=== PATIENT | female | born 1995 | race Caucasian/White ===

== ENCOUNTER 2018-03-24 22:03 | Emergency (ER) | payer BC, MEDICAID ==
[~2018-03-24] VITALS: Ht 170.2 cm; Wt 57.0 kg
[~2018-03-24 22:03] MED LIST: DOCU100C40 PO; HYDR-569 PO
[2018-03-25 00:28] LABS: URINE HCG NEGATIVE (NEG)
[2018-03-25 00:29] LABS: CLARITY,URINE SLIGHTLY CLOUDY (Clear); COLOR,URINE YELLOW (Yellow); GLUCOSE, URINE NEGATIVE (Neg); KETONES,URINE NEGATIVE (Neg); LEUKOCYTE ESTERASE ,URINE NEGATIVE (Neg); NITRITES, URINE NEGATIVE (Neg); OCCULT BLOOD,URINE NEGATIVE (Neg); PH,URINE 8.5 (4.8-8.0); PROTEIN,URINE NEGATIVE (Neg); UROBILINOGEN,URINE 0.2 E.U/dL (0.2-1.0)
[2018-03-25 00:33] LABS: UA COLLECTION TYPE CLN CATCH MIDSTREAM
[2018-03-25] MEDS ORDERED: ketorolac trometh. 30mg/ml inj. IM ONE (00:40)
[2018-03-25 00:43] LABS: AMORPHOUS PHOSPHATES 4+; RBC,URINE 0-2 /HPF (0-2); SQUAMOUS EPITHELIAL CELL,UR MANY /LPF (FEW); WBC,URINE 0-4 /HPF (0-4)
[2018-03-25 00:44] LABS: BACTERIA,URINE FEW /HPF (Neg)
[2018-03-25 00:58] VITALS: BP 121/67
== END 2018-03-25 00:59 | disposition home or self-care (01) ==
LOC: ER 22:03
DX: R10.30 Lower abdominal pain, unspecified (principal); K21.9 Gastro-esophageal reflux disease without esophagitis; Z88.8 Allergy status to other drugs, medicaments and biological substances; Z91.040 Latex allergy status; Z79.899 Other long term (current) drug therapy
CPT/HCPCS: 81001; 81025; 96372; 99284; J1885

== ENCOUNTER 2018-06-14 10:34 | Emergency (ER) | payer BC, MEDICAID ==
[~2018-06-14] VITALS: Ht 170.2 cm; Wt 63.0 kg
[2018-06-14] MEDS ORDERED: ondansetron/PF 4mg/2ml inj IV ONE (12:40)
[2018-06-14] MEDS ORDERED: normal saline 1000ML IV soln IVB ONE (12:40)
[2018-06-14 13:14] LABS: CLARITY,URINE SLIGHTLY CLOUDY (Clear); COLOR,URINE YELLOW (Yellow); GLUCOSE, URINE NEGATIVE (Neg); KETONES,URINE 15 mg/dl (Neg); LEUKOCYTE ESTERASE ,URINE NEGATIVE (Neg); NITRITES, URINE NEGATIVE (Neg); OCCULT BLOOD,URINE NEGATIVE (Neg); PH,URINE 5.5 (4.8-8.0); PROTEIN,URINE TRACE mg/dl (Neg); URINE HCG NEGATIVE (NEG); UROBILINOGEN,URINE 0.2 E.U/dL (0.2-1.0)
[2018-06-14 13:15] LABS: UA COLLECTION TYPE CLN CATCH MIDSTREAM
[2018-06-14 13:27] LABS: AMORPHOUS URATES 4+; BACTERIA,URINE NONE SEEN /HPF (Neg); RBC,URINE NONE SEEN /HPF (0-2); SQUAMOUS EPITHELIAL CELL,UR MODERATE /LPF (FEW); WBC,URINE 0-4 /HPF (0-4)
[2018-06-14] MEDS ORDERED: proCHLORperazine 10 MG/2 ml inj IV ONE (13:35)
[2018-06-14] MEDS ORDERED: mag hydrox/Alum hydrox/simeth 30ml oral suspension PO ONE (13:35)
[2018-06-14] MEDS ORDERED: famotidine 20mg tablet PO ONE (13:35)
[2018-06-14] MEDS ORDERED: pantoprazole 40 MG vial IV ONE (13:35)
[2018-06-14 14:50] LABS: C DIFF ANTIGEN NEGATIVE (NEGATIVE); C DIFF SPECIMEN=DIARRHEA? ACCEPTABLE; C DIFFICILE TOXINS A&B NEGATIVE (Neg)
[2018-06-14] MEDS ORDERED: LOPE2CAP PO (14:59)
[2018-06-14] MEDS ORDERED: ONDA8TAB9 PO (14:59)
[2018-06-14 15:10] VITALS: BP 106/51
== END 2018-06-14 15:13 | disposition home or self-care (01) ==
LOC: ER 10:35
DX: K52.9 Noninfective gastroenteritis and colitis, unspecified (principal); K21.9 Gastro-esophageal reflux disease without esophagitis; Z88.8 Allergy status to other drugs, medicaments and biological substances; Z91.040 Latex allergy status; Z79.899 Other long term (current) drug therapy
CPT/HCPCS: 81001; 81025; 87324; 87449; 96361; 96374; 96375; 99284; C9113; J0780; J2405; J7030

== ENCOUNTER 2018-12-29 11:25 | Emergency (ER) | payer BC, MEDICAID ==
[~2018-12-29] VITALS: Ht 170.2 cm; Wt 68.1 kg
[~2018-12-29 11:25] MED LIST changes: +HYDR-4383 PO; -HYDR-569 PO; +LOPE2CAP PO; +ONDA8TAB9 PO
[2018-12-29 12:05] LABS: BASOPHILS % (AUTO) 0.4 % (0-1); EOSINOPHILS # (AUTO) 0.4 X10'3 (0-0.9); EOSINOPHILS % (AUTO) 5.5 % (0-6); HEMATOCRIT 45.5 % (35.0-45.0); HEMOGLOBIN 15.6 g/dl (12.0-16.0); LYMPHOCYTES % (AUTO) 28.6 % (21-51); MEAN CORPUSCULAR HEMOGLOBIN 30.6 PG (27.0-31.0); MEAN CORPUSCULAR HGB CONC 34.3 g/dL (33.0-36.5); MEAN CORPUSCULAR VOLUME 89.2 FL (78-98); MEAN PLATELET VOLUME 8.4 FL (7.4-10.4); MONOCYTES # (AUTO) 0.5 X10'3 (0-0.9); NEUTROPHILS # (AUTO) 4.1 X10'3 (1.8-7.7); NEUTROPHILS % (AUTO) 58.5 % (42-75); PLATELET COUNT 233 X10'3 (140-440); RED CELL DISTRIBUTION WIDTH 12.4 % (11.5-14.5); WHITE BLOOD COUNT 7.1 X10'3 (4.5-11.0)
[2018-12-29 12:09] LABS: CLARITY,URINE CLOUDY (Clear); COLOR,URINE YELLOW (Yellow); GLUCOSE, URINE NEGATIVE (Neg); KETONES,URINE NEGATIVE (Neg); LEUKOCYTE ESTERASE ,URINE NEGATIVE (Neg); NITRITES, URINE NEGATIVE (Neg); OCCULT BLOOD,URINE NEGATIVE (Neg); PROTEIN,URINE NEGATIVE (Neg); UROBILINOGEN,URINE 0.2 E.U/dL (0.2-1.0)
[2018-12-29 12:13] LABS: UA COLLECTION TYPE CLN CATCH MIDSTREAM
[2018-12-29 12:14] LABS: MUCUS STRANDS MODERATE /LPF (Neg); SQUAMOUS EPITHELIAL CELL,UR MODERATE /LPF (FEW); URINE HCG NEGATIVE (NEG)
[2018-12-29 12:15] LABS: AMORPHOUS PHOSPHATES 2+; BACTERIA,URINE 1+ /HPF (Neg)
[2018-12-29 12:16] LABS: RBC,URINE 0-2 /HPF (0-2); WBC,URINE 0-4 /HPF (0-4)
[2018-12-29 12:18] LABS: INR 1.1 INR
[2018-12-29 12:19] LABS: ALANINE AMINOTRANSFERASE 22 U/L (12-78); ALBUMIN 4.4 G/DL (3.4-5.0); ALBUMIN/GLOBULIN RATIO 1.3 (1.1-1.5); ALKALINE PHOSPHATASE 87 IU/L (46-116); ANION GAP 9 (8-16); ASPARTATE AMINO TRANSFERASE 17 U/L (10-37); BILIRUBIN,TOTAL 0.9 MG/DL (0.1-1.0); BLOOD UREA NITROGEN 6 MG/DL (7-18); BUN/CREATININE RATIO 8.1 (6.6-38.0); CALCIUM 8.8 MG/DL (8.5-10.1); CHLORIDE 102 MMOL/L (99-107); CREATININE 0.74 MG/DL (0.40-0.90); GLUCOSE 83 MG/DL (70-104); LIPASE 115 U/L (73-393); POTASSIUM 3.7 MMOL/L (3.5-5.1); SODIUM 139 MMOL/L (135-145); TOTAL CARBON DIOXIDE 28.4 MMOL/L (24-32); TOTAL PROTEIN 7.8 G/DL (6.4-8.2); eGFR > 90 ML/MIN
[2018-12-29] MEDS ORDERED: MAGN296S50 PO (13:17)
[2018-12-29] MEDS ORDERED: POLY119P2 PO (13:17)
[2018-12-29] MEDS ORDERED: BISA-155 PO (13:17)
[2018-12-29] MEDS ORDERED: ONDA8TAB6 PO (13:18)
[2018-12-29] MEDS ORDERED: ondansetron 4mg rapidly disintigrating tab PO ONE (13:20)
[2018-12-29 13:58] VITALS: BP 112/58
== END 2018-12-29 13:59 | disposition home or self-care (01) ==
LOC: ER 11:26
DX: K59.00 Constipation, unspecified (principal); R10.31 Right lower quadrant pain; R10.84 Generalized abdominal pain; K21.9 Gastro-esophageal reflux disease without esophagitis; Z79.899 Other long term (current) drug therapy; Z88.8 Allergy status to other drugs, medicaments and biological substances; Z91.040 Latex allergy status; Z88.1 Allergy status to other antibiotic agents
CPT/HCPCS: 36415; 80053; 81001; 81025; 83690; 85025; 85610; 99283

== ENCOUNTER 2019-02-05 17:57 | Emergency (ER) | payer BC, MEDICAID ==
[~2019-02-05] VITALS: Ht 170.2 cm; Wt 61.0 kg
[~2019-02-05 17:57] MED LIST changes: +BISA-155 PO; +MAGN296S50 PO; +ONDA8TAB6 PO; +POLY119P2 PO
[2019-02-05] MEDS ORDERED: CYCL-1 PO (20:45)
[2019-02-05] MEDS ORDERED: PRED20TA PO (20:45)
[2019-02-05 20:56] VITALS: BP 102/62
== END 2019-02-05 20:59 | disposition home or self-care (01) ==
LOC: ER 17:58
DX: M62.838 Other muscle spasm (principal); K21.9 Gastro-esophageal reflux disease without esophagitis; Z88.8 Allergy status to other drugs, medicaments and biological substances; Z91.040 Latex allergy status; Z88.1 Allergy status to other antibiotic agents; Z79.899 Other long term (current) drug therapy
CPT/HCPCS: 99283

== ENCOUNTER 2023-02-01 15:56 | Emergency (ER) | payer BC, MEDICAID, OTHER ==
[~2023-02-01] VITALS: Ht 170.2 cm; Wt 79.1 kg
[~2023-02-01 15:56] MED LIST changes: +CYCL-1 PO; -MAGN296S50 PO; +MAGN296S89 PO
[2023-02-01] MEDS ORDERED: acetaminophen 325mg tablet PO ONE ×2 (18:55→19:20)
[2023-02-01] MEDS ORDERED: naproxen 500mg tablet PO ONE (18:55)
[2023-02-01] MEDS ORDERED: cyclobenzaprine 10mg tablet PO ONE ×2 (18:55→19:20)
[2023-02-01] MEDS ORDERED: CYCL-1 PO (19:00)
[2023-02-01] MEDS ORDERED: NAPR-56 PO (19:00)
--- NOTE | 2023-02-01 19:20 | NUR ---
Patient dropped one of her Tylenol and the Flexeril. These were wasted and reordered
[2023-02-01 19:40] LABS: URINE HCG NEGATIVE (NEG)
== END 2023-02-01 20:39 | disposition home or self-care (01) ==
LOC: ER 15:56
DX: M54.2 Cervicalgia (principal); Z53.21 Procedure and treatment not carried out due to patient leaving prior to being seen by health care provider; R51.9 Headache, unspecified; M25.512 Pain in left shoulder; K21.9 Gastro-esophageal reflux disease without esophagitis; Z88.8 Allergy status to other drugs, medicaments and biological substances; Z88.1 Allergy status to other antibiotic agents; Z91.040 Latex allergy status; Z79.899 Other long term (current) drug therapy; Z79.1 Long term (current) use of non-steroidal anti-inflammatories (NSAID); Z79.2 Long term (current) use of antibiotics
CPT/HCPCS: 70450; 72125; 81025; 99284